=== PATIENT | female | born 1985 | race Caucasian/White ===

== ENCOUNTER 2017-06-24 20:18 | Emergency (ER) | payer OTHER ==
[~2017-06-24 20:18] MED LIST: FIBE625T10 PO; LACTCAP8 PO; NORG1TAB29 PO; WELLTAB39 PO
[2017-06-24] MEDS ORDERED: IOHEXOL 350 MG/ML 10 ML VIAL (for RAD DIAG) IVCONTRAST ONE (20:19)
[2017-06-24 20:20] VITALS: BP 153/86; PULSE 97; RESP 16; TEMP 98.6; O2SAT 100
[2017-06-24] MEDS ORDERED: PANT20 PO (20:40)
[2017-06-24] MEDS ORDERED: SODIUM CHLOR 0.9% 1000 ML INJ 1,000 ML IV SCH (20:49)
[2017-06-24] MEDS ORDERED: SODIUM CHLORIDE 0.9% FLUSH 10 ML FLUSH IV FLUSH PRN (21:00)
--- NOTE | 2017-06-24 21:14 | PD ---
HPI Chief Complaint: Abdominal Pain Time Seen by Provider: 20:38 Travel History International Travel<30 days: No Contact w/Intl Traveler<30days: No Traveled to known affect area: No History of Present Illness HPI Patient is a 32-year-old female who presents to emergency room with abdominal pain. She reports that she is dealing with abdominal pain for the past few months, that her primary care doctor has treated her for H. pylori, reports that she cannot figure out why patient is having abdominal pain. Reports that initially, her abdominal pain was epigastric in nature. Reports that for the past 2 days, she has been having diffuse abdominal pain and bloating. Patient reports no nausea or vomiting, denies constipation or diarrhea. Reports that she last had a bowel movement yesterday as she took a laxative (she has BM's every few days which is normal for her). Patient reports that she is able to eat and drink, reports that she has a discomfort to her abdomen which she cannot explain. She was seen at urgent care center today, she was told to go to the ER for evaluation. Patient denies any vaginal discharge or bleeding at this time, denies dysuria, urinary urgency or frequency. PFSH Past Medical History Medical History: Denies Significant Hx Diminished Hearing: No Gestational Age in Weeks: 7 ?: Not Menopausal: No : 2 Para: 0 Miscarriage: 1 : 0 Past Surgical History Surgical History: No Previous Surgery Tonsillectomy: Yes (2005) Social History Alcohol Use: No Tobacco Use: No Substance Use: No Allergies-Medications (Allergen,Severity, Reaction): Coded Allergies: penicillin G (Verified Allergy, Severe, rash, 06/21/17) Reported Meds & Prescriptions Reported Meds & Active Scripts Active Protonix (Pantoprazole Sodium) 40 Mg Tab 40 Mg PO DAILY Reported Protonix (Pantoprazole Sodium) 20 Mg Tab 20 Mg PO DAILY Low-Ogestrel (Norgestrel-Ethinyl Estradiol) 0.3-30 Mg-Mcg Tab 1 Tab PO DAILY Probiotic (Lactobacillus Acidophilus) 10 Billion Cell Cap 1 Cap PO DAILY Fiber (Calcium Polycarbophil) 625 Mg Tab 625 Mg PO PRN Wellbutrin Xl 24 HR (Bupropion HCl) 300 Mg Tab 300 Mg PO DAILY Review of Systems General / Constitutional: No: Fever Eyes: No: Visual changes HENT: No: Headaches Cardiovascular: No: Chest Pain or Discomfort Respiratory: No: Shortness of Breath Gastrointestinal: Positive: Abdominal Pain, No: Nausea, Vomiting, Diarrhea, Constipation Genitourinary: No: Urgency, Frequency, Dysuria Musculoskeletal: No: Pain Skin: No Rash Neurologic: No: Weakness Psychiatric: No: Depression Endocrine: No: Polydipsia Hematologic/Lymphatic: No: Easy Bruising Physical Exam Narrative GENERAL: mild distress SKIN: Focused skin assessment warm/dry. HEAD: Atraumatic. Normocephalic. EYES: No injection or drainage. ENT: No nasal bleeding or discharge. Mucous membranes pink and moist. NECK: Trachea midline. No JVD. CARDIOVASCULAR: Regular rate and rhythm. No murmur appreciated. RESPIRATORY: No accessory muscle use. Clear to auscultation. Breath sounds equal bilaterally. GASTROINTESTINAL: Abdomen soft, non-tender, nondistended. Hepatic and splenic margins not palpable. MUSCULOSKELETAL: No obvious deformities. No clubbing. No cyanosis. No edema. NEUROLOGICAL: Awake and alert. No obvious cranial nerve deficits. Motor grossly within normal limits. Normal speech. PSYCHIATRIC: Appropriate mood and affect; insight and judgment normal. Data Data Last Documented VS Vital Signs Date Time Temp Pulse Resp B/P (MAP) Pulse Ox O2 Delivery O2 Flow Rate FiO2 06/24/17 23:21 06/24/17 20:20 98.6 97 16 100 Room Air Orders Orders Complete Blood Count With Diff (06/24/17 20:49) Comprehensive Metabolic Panel (06/24/17 20:49) Lipase (06/24/17 20:49) Prothrombin Time / Inr (Pt) (06/24/17 20:49) Act Partial Throm Time (Ptt) (06/24/17 20:49) Urinalysis - C+S If Indicated (06/24/17 20:49) Iv Access Insert/Monitor (06/24/17 20:49) Sodium Chlor 0.9% 1000 Ml Inj (Ns 1000 M (06/24/17 20:49) Sodium Chloride 0.9% Flush (Ns Flush) (06/24/17 21:00) Ed Urine Pregnancytest Poc (06/24/17 20:49) Ct Abd/Pel W Iv Contrast(Rout) (06/24/17 22:25) Iohexol 350 Inj (Omnipaque 350 Inj) (06/24/17 20:19) Labs Laboratory Tests Test 06/24/17 21:22 06/24/17 21:29 Urine Color YELLOW Urine Turbidity HAZY Urine pH 5.5 Urine Specific [place] 1.026 Urine Protein TRACE mg/dL Urine Glucose (UA) NEG mg/dL Urine Ketones 10 mg/dL Urine Occult Blood SMALL Urine Nitrite NEG Urine Bilirubin NEG Urine Urobilinogen LESS THAN 2.0 MG/DL Urine Leukocyte Esterase NEG Urine RBC 1 /hpf Urine WBC 5 /hpf Urine Squamous Epithelial Cells 2 /hpf Urine Bacteria RARE /hpf Urine Mucus MANY /lpf Microscopic Urinalysis Comment CULT NOT INDICATED White Blood Count 8.7 TH/MM3 Red Blood Count 4.37 MIL/MM3 Hemoglobin 13.0 GM/DL Hematocrit 38.3 % Mean Corpuscular Volume 87.8 FL Mean Corpuscular Hemoglobin 29.8 PG Mean Corpuscular Hemoglobin Concent 33.9 % Red Cell Distribution Width 13.7 % Platelet Count 171 TH/MM3 Mean Platelet Volume 10.2 FL Neutrophils (%) (Auto) 58.0 % Lymphocytes (%) (Auto) 32.1 % Monocytes (%) (Auto) 8.1 % Eosinophils (%) (Auto) 1.3 % Basophils (%) (Auto) 0.5 % Neutrophils # (Auto) 5.0 TH/MM3 Lymphocytes # (Auto) 2.8 TH/MM3 Monocytes # (Auto) 0.7 TH/MM3 Eosinophils # (Auto) 0.1 TH/MM3 Basophils # (Auto) 0.0 TH/MM3 CBC Comment DIFF FINAL Differential Comment Prothrombin Time 10.0 SEC Prothromb Time International Ratio 0.9 RATIO Activated Partial Thromboplast Time 27.0 SEC Blood Urea Nitrogen 9 MG/DL Creatinine 0.97 MG/DL Random Glucose 88 MG/DL Total Protein 7.7 GM/DL Albumin 3.7 GM/DL Calcium Level 9.3 MG/DL Alkaline Phosphatase 45 U/L Aspartate Amino Transf (AST/SGOT) 21 U/L Alanine Aminotransferase (ALT/SGPT) 33 U/L Total Bilirubin 0.5 MG/DL Sodium Level 137 MEQ/L Potassium Level 3.5 MEQ/L Chloride Level 104 MEQ/L Carbon Dioxide Level 22.8 MEQ/L Anion Gap 10 MEQ/L Estimat Glomerular Filtration Rate 66 ML/MIN Lipase 134 U/L [facility] Medical Decision Making Medical Screen Exam Complete: Yes Emergency Medical Condition: Yes Medical Record Reviewed: Yes Interpretation(s) Vital Signs Date Time Temp Pulse Resp B/P (MAP) Pulse Ox O2 Delivery O2 Flow Rate FiO2 06/24/17 20:20 98.6 97 16 153/86 (108) 100 Room Air Differential Diagnosis Differential includes gastritis, gastroenteritis, cholecystitis, electrolyte abnormality, uti Narrative Course Patient is a 32 year old female who presents to ER with complaint of abdominal pain. Patient reports that she has had abdominal pain for the past 2 days, reports that she feels bloated inside. Reports that she is not having any nausea or vomiting and diarrhea. Reports that she has had abdominal pain for the past few months but it has progressed over the past 2 days. CBC, CMP and Ct of abdomen and pelvis ordered. IVF ordered as well. Plan to monitor patient. CBC & BMP Diagram 06/24/17 21:29 Total Protein 7.7, Albumin 3.7, Calcium Level 9.3, Alkaline Phosphatase 45, Aspartate Amino Transf (AST/SGOT) 21, Alanine Aminotransferase (ALT/SGPT) 33, Total Bilirubin 0.5 CT abdomen pelvis with negative exam. There is no acute intraperitoneal or pelvic process, appendix and gallbladder are radiographically normal. Patient feeling much better at this time. Patient will follow up with her pcp and GI as outpatient and will return to ER as needed. 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
[2017-06-24 21:48] LABS: BASOPHIL % 0.5 % (0.0-2.0); EOSINOPHIL # 0.1 TH/MM3 (0-0.4); EOSINOPHIL % 1.3 % (0.0-4.0); HEMATOCRIT 38.3 % (35.0-46.0); HEMO FLAGS DIFF FINAL; LYMPH % 32.1 % (9.0-44.0); LYMPHOCYTE # 2.8 TH/MM3 (1.0-4.8); MEAN CELL VOLUME 87.8 FL (80.0-100.0); MEAN CORPUSCULAR HEMOGLOBIN 29.8 PG (27.0-34.0); MEAN CORPUSCULAR HGB CONC 33.9 % (32.0-36.0); MONO % 8.1 % (0.0-8.0); PLATELET COUNT 171 TH/MM3 (150-450); RED BLOOD COUNT 4.37 MIL/MM3 (4.00-5.30); RED CELL DISTRIBUTION WIDTH 13.7 % (11.6-17.2); WHITE BLOOD COUNT 8.7 TH/MM3 (4.0-11.0)
[2017-06-24 21:52] LABS: INTERNATIONAL NORMALIZED RATIO 0.9 RATIO
[2017-06-24 22:01] LABS: ANION GAP 10 MEQ/L (5-15); AST (GOT) 21 U/L (15-37); BICARBONATE 22.8 MEQ/L (21.0-32.0); BLOOD UREA NITROGEN 9 MG/DL (7-18); CHLORIDE 104 MEQ/L (98-107); GLOMERULAR FILTRATION RATE 66 ML/MIN (>89); POTASSIUM 3.5 MEQ/L (3.5-5.1); SODIUM (NA) 137 MEQ/L (136-145)
[2017-06-24 22:05] LABS: ALKALINE PHOSPHATASE 45 U/L (45-117); ALT (GPT) 33 U/L (10-53); TOTAL BILIRUBIN ADULT 0.5 MG/DL (0.2-1.0)
[2017-06-24 22:13] LABS: BACTERIA, URINE RARE /hpf; BLOOD, URINE SMALL (NEG); COMMENT (UR) CULT NOT INDICATED; CULTURE IF INDICATED CULT NOT INDICATED; GLUCOSE,URINE NEG (NEG); KETONE, URINE 10 mg/dL (NEG); MUCUS URINE MANY /lpf (OCC); NITRITE,URINE NEG (NEG); PH, URINE 5.5 (5.0-8.5); SQUAMOUS EPITHELIAL CELL URINE 2 /hpf (0-5); URINE COLOR YELLOW (YELLW/STRAW)
[2017-06-24] MEDS ORDERED: PROT40TA PO (23:16)
--- NOTE | 2017-06-24 23:16 | RADRPT ---
EXAM DATE/TIME: 06/24/2017 22:43 [facility] COMPARISON: No previous studies available for comparison. INDICATIONS : Midline abdominal pain. IV CONTRAST: 100 cc Omnipaque 350 (iohexol) IV ORAL CONTRAST: No oral contrast ingested. RADIATION DOSE: 6.64 CTDIvol (mGy) MEDICAL HISTORY : None SURGICAL HISTORY : None. ENCOUNTER: Initial ACUITY: 3 days PAIN SCALE: 7/10 LOCATION: middle abdomen TECHNIQUE: Volumetric scanning of the abdomen and pelvis was performed. Using automated exposure control and ad justment of the mA and/or kV according to patient size, radiation dose was kept as low as reasonably achievable to obtain optimal diagnostic quality images. DICOM format image data is available electro nically for review and comparison. FINDINGS: LOWER LUNGS: The visualized lower lungs are clear. LIVER: Homogeneous density without lesion. There is no dilation of the biliary tree. No calcified gallston es. SPLEEN: Normal size without lesion. PANCREAS: Within normal limits. KIDNEYS: Normal in size and shape. There is no mass, stone or hydronephrosis. ADRENAL GLANDS: Within normal limits. VASCULAR: There is no aortic aneurysm. BOWEL/MESENTERY: The stomach, small bowel, and colon demonstrate no acute abnormality. There is no free intraperitone al air or fluid. The appendix is identified and is radiographically normal. ABDOMINAL WALL: Within normal limits. RETROPERITONEUM: There is no lymphadenopathy. BLADDER: No wall thickening or mass. REPRODUCTIVE: Within normal limits. INGUINAL: There is no lymphadenopathy or hernia. MUSCULOSKELETAL: Within normal limits for patient age. CONCLUSION: Negative exam. No acute intraperitoneal or pelvic process to explain current clinical symptoms. The appendix and gallbladder are radiographically normal. Fred Og MD on June 24, 2017 at 23:09 Board Certified Radiologist. This report was verified electronically.
[2017-06-24] MEDS ORDERED: DICY10 PO (23:26)
== END 2017-06-24 23:31 | disposition home or self-care (01) ==
LOC: NEPD 20:18
DX: K29.70 Gastritis, unspecified, without bleeding (principal); R10.10 Upper abdominal pain, unspecified
CPT/HCPCS: 74177; 80053; 81001; 83690; 84703; 85025; 85610; 85730; 96360; 99285; J7030; Q9967